=== PATIENT | male | born 1945 | race Two or more races ===

== ENCOUNTER 2023-01-17 14:24 | Inpatient (IN) | payer MEDICARE, OTHER ==
[~2023-01-17] VITALS: Ht 182.9 cm; Wt 86.6 kg
[~2023-01-17 14:24] MED LIST: ALBU0.633 IH; ATOR20TA PO; DOCU-141 PO; FOLI1TAB16 PO; IPRA0.2S49 IH; OLAN5TAB3 PO; SIMV-46 PO; ZOLP5TAB2 PO
--- NOTE | 2023-01-17 14:53 | NUR ---
PT COMES FROM A PRISON A/OX2 NO S/S OF RESPIRATORY DISTRESS. 100% O2 SAT ON ROOM AIR. C/O: COMING FOR INCREASE AGISTATION AND COFUSION PER FACILITY, URINARY RETENTION ALSO NOTED FROM FACILITY. POSSIBLE UTI. PT IS AFEBRIAL 97.8, VITALS WNL. PLACE IN BED HI FOWLERS, BED LOCKED IN LOWEST POSTION.
[2023-01-17 15:36] LABS: BASOPHILS # (AUTO) 0.1 K/uL (0.0-0.2); BASOPHILS % (AUTO) 0.7 % (0.0-2.0); EOSINOPHILS % (AUTO) 2.8 % (0.0-6.0); HEMATOCRIT 32 % (39-51); HEMOGLOBIN 10.2 g/dL (13.5-17.5); LYMPHOCYTES # (AUTO) 1.8 K/uL (0.8-4.8); LYMPHOCYTES % (AUTO) 19.6 % (20.0-44.0); MEAN CORPUSCULAR HGB CONC 32 g/dl (31.0-36.0); MEAN CORPUSCULAR VOLUME 99 fL (80-96); MONOCYTES # (AUTO) 0.7 K/uL (0.1-1.30); MONOCYTES % (AUTO) 8.3 % (2.0-12.0); NEUTROPHILS # (AUTO) 6.1 K/uL (1.8-8.9); NEUTROPHILS % (AUTO) 68.6 % (43.0-81.0); PLATELET COUNT (AUTO) 317 K/uL (150-450); RED BLOOD CELL COUNT(AUTO) 3.21 MIL/uL (4.5-6.0); WHITE BLOOD COUNT (AUTO) 8.9 K/uL (4.3-11.0)
[2023-01-17 16:07] LABS: CALCIUM, SERUM 8.8 mg/dL (8.5-10.1); CARBON DIOXIDE 24 mmol/L (21-32); CHLORIDE 105 mmol/L (98-107); CREATININE 5.8 mg/dL (0.6-1.3); GLUCOSE 142 mg/dL (74-106); POTASSIUM 3.9 mmol/L (3.5-5.1); SODIUM SERUM 140 mmol/L (136-145); UREA NITROGEN, BLOOD 64 mg/dL (7-18)
[2023-01-17 16:14] LABS: ALANINE AMINOTRANSFERASE 26 U/L (12-78); ALBUMIN 3.3 g/dL (3.4-5.0); ALKALINE PHOSPHATASE 218 U/L (46-116); ASPARTATE AMINOTRANSFERASE 15 U/L (15-37); BILIRUBIN,TOTAL 0.2 mg/dL (0.2-1.0); LIPASE 302 U/L (73-393); TOTAL PROTEIN, SERUM 6.7 g/dL (6.4-8.2)
--- NOTE | 2023-01-17 18:58 | NUR ---
covid swab collected and sent to lab
[2023-01-17] MEDS ORDERED: ZOLPIDEM TARTRATE 5 MG TABLET PO PRN ×2 (19:00→22:00)
[2023-01-17] MEDS ORDERED: IV 1/2NS 1000 ML 1,000 ML IV PRN (19:00)
[2023-01-17] MEDS ORDERED: ONDANSETRON HCL/PF 4 MG/2 ML VIAL IVP PRN (19:00)
[2023-01-17] MEDS ORDERED: MAG HYDROX/AL HYDROX/SIMETH 30 ML UDC PO PRN (19:00)
[2023-01-17] MEDS ORDERED: MAGNESIUM HYDROXIDE 30 ML UDC PO PRN (19:00)
[2023-01-17] MEDS ORDERED: Z GUARD REMEDY 4 OZ OINT TP PRN (19:00)
[2023-01-17] MEDS ORDERED: ACETAMINOPHEN 325 MG TABLET PO PRN (19:00)
--- NOTE | 2023-01-17 19:02 | NUR ---
urine sample collected and sent to lab
[2023-01-17 20:15] LABS: BILIRUBIN,URINE NEGATIVE (NEGATIVE); COLOR,URINE YELLOW (YELLOW); LEUKOCYTE ESTERASE ,URINE NEGATIVE (NEGATIVE); NITRITE, URINE POSITIVE (NEGATIVE); PH,URINE 7.5 (5.0-8.0); PROTEIN,URINE 2+ mg/dl (NEGATIVE); UGLUCOSE 1+ mg/dL (NEGATIVE); UROBILINOGEN,URINE 0.2 EU/dL (0.2)
[2023-01-17 20:35] LABS: BACTERIA,URINE 2+ /HPF (None Seen); SQUAMOUS EPITHELIAL CELL,UR 0-2 /HPF (None Seen); WBC,URINE 0-2 /HPF (0-3)
[2023-01-17 21:00] VITALS: BP 113/43
--- NOTE | 2023-01-17 21:00 | NUR ---
MS LIQUID FLOOR AND WALL APPLIER NOTES - RECEIVED PATIENT FROM ED AT 2047 [facility] UNDER THE CARE OF ZANDER NICHOLAS WITH DX OF ACUTE KIDNEY INJURY. PATIENT IS A/O X4 BUT A POOR HISTORIAN. HE SAID HE HAS DAUGHTERS, SONS AND A BROTHER LIVING IN [place]. BREATHING IS EVEN AND NON-LABORED ON ROOM AIR. DENIES CHEST PAIN, ABDOMINAL PAIN, NAUSEA, VOMITING, HEADACHES OR DIZZINESS. PATIENT WAS NOT SURE WHY HE WAS SENT TO THE HOSPITAL. HAS RIGHT ANTECUBITAL IV ACCESS #20G AND SALINE LOCKED. NO S/S OF INFILTRATION NOTED. HAS RIGHT LOWER QUADRANT UROSTOMY WITH BAG INTACT AND FILLED WITH CLEAR YELLOW URINE, MUCUS THREADS NOTED. HAS RIGHT CHEST WALL PORT-A-CATH. HAS LEFT UPPER ARM AV FISTULA, THRILLS AND BRUITS PRESENT. VITAL SIGNS TAKEN AND PHYSICAL ASSESSMENT DONE, NO SKIN ISSUES NOTED. ALL BELONGINGS ACCOUNTED FOR. ORIENTED PATIENT TO UNIT AND STAFF. SAFETY PRECAUTIONS IN PLACE: BED LOCKED AND IN LOW POSITION, SIDE RAILS UP X2, CALL LIGHT WITHIN REACH. WILL CONTINUE PLAN OF CARE.
[2023-01-17] MEDS ORDERED: ATORVASTATIN 10 MG TABLET PO SCH (22:00)
[2023-01-17] MEDS ORDERED: SIMVASTATIN 20 MG TABLET PO SCH (22:00)
[2023-01-17] MEDS ORDERED: IPRATROPIUM NEB FS 0.5 MG/2.5 ML AMPUL.NEB IH PRN (22:00)
[2023-01-17] MEDS: OLANZAPINE 5 MG TABLET PO SCH (22:41)
[2023-01-18 05:54] LABS: BASOPHILS # (AUTO) 0.1 K/uL (0.0-0.2); BASOPHILS % (AUTO) 0.7 % (0.0-2.0); EOSINOPHILS % (AUTO) 3.5 % (0.0-6.0); HEMATOCRIT 32 % (39-51); HEMOGLOBIN 10.2 g/dL (13.5-17.5); LYMPHOCYTES # (AUTO) 1.8 K/uL (0.8-4.8); LYMPHOCYTES % (AUTO) 22.2 % (20.0-44.0); MEAN CORPUSCULAR HGB CONC 32 g/dl (31.0-36.0); MEAN CORPUSCULAR VOLUME 100 fL (80-96); MONOCYTES # (AUTO) 0.6 K/uL (0.1-1.30); MONOCYTES % (AUTO) 7.5 % (2.0-12.0); NEUTROPHILS # (AUTO) 5.5 K/uL (1.8-8.9); NEUTROPHILS % (AUTO) 66.1 % (43.0-81.0); PLATELET COUNT (AUTO) 312 K/uL (150-450); RED BLOOD CELL COUNT(AUTO) 3.18 MIL/uL (4.5-6.0); WHITE BLOOD COUNT (AUTO) 8.3 K/uL (4.3-11.0)
[2023-01-18 06:28] LABS: CALCIUM, SERUM 8.5 mg/dL (8.5-10.1); CARBON DIOXIDE 20 mmol/L (21-32); CHLORIDE 108 mmol/L (98-107); CREATININE 5.3 mg/dL (0.6-1.3); GLUCOSE 87 mg/dL (74-106); MAGNESIUM 2.5 mg/dL (1.8-2.4); PHOSPHORUS 4.2 mg/dL (2.5-4.9); SODIUM SERUM 141 mmol/L (136-145); UREA NITROGEN, BLOOD 63 mg/dL (7-18)
--- NOTE | 2023-01-18 06:57 | NUR ---
MS RN CLOSING NOTES - PATIENT RESTING IN BED, ABLE TO VERBALIZE NEEDS. NO RESPIRATORY OR CARDIAC DISTRESS. NO SOB OR NOTED. NO C/O PAIN OR DISCOMFORT. AFEBRILE. RIGHT ANTECUBITAL IV ACCESS INTACT, PATENT AND FLUSHING. GOOD URINE OUTPUT NOTED. ALL DUE MEDS GIVEN AND NEEDS ATTENDED. AMBULATORY AND INDEPENDENT WITH ADLS. SAFETY PRECAUTIONS MAINTAINED. WILL ENDORSE TO AM RN FOR HARMAN.
--- NOTE | 2023-01-18 07:15 | NUR ---
RN OPENING NOTES RECEIVED PATIENT LAYING IN BED, ABLE TO VERBALIZE NEEDS. NO RESPIRATORY OR CARDIAC DISTRESS. PT ON RA O2 @95%. NO SOB OR DISTRESS AT THIS TIME. NO C/O PAIN OR DISCOMFORT. AFEBRILE. RIGHT AC IV ACCESS INTACT. GOOD URINE OUTPUT NOTED. PT AMBULATED TO RESTROOM AND PASSED STOOL. AMBULATORY AND INDEPENDENT WITH ADLS. SAFETY PRECAUTIONS MAINTAINED. BED IN LOWEST POSITION AND HOB ELEVATED, CALL LIGHT WITHIN REACH. WILL CONTINUE TO MONITOR.
[2023-01-18 08:00] VITALS: BP 113/61
[2023-01-18] MEDS: DOCUSATE SODIUM 100 MG CAPSULE PO SCH ×2 (08:56→20:13)
[2023-01-18] MEDS: FOLIC ACID 1 MG TABLET PO SCH (08:56)
[2023-01-18] MEDS ORDERED: ALBUTEROL HALF STRENGTH 1.25 MG/3 ML VIAL.NEB INH PRN (09:00)
[2023-01-18] MEDS: CEFTRIAXONE 1 G in IV D5W 50 ML IV SCH (11:37)
[2023-01-18] MEDS ORDERED: ZINC50TA69 PO (13:41)
[2023-01-18] MEDS ORDERED: BUPR-54 PO (13:41)
[2023-01-18] MEDS ORDERED: SENN-261 PO (13:41)
[2023-01-18] MEDS ORDERED: MAGN400O6 PO (13:41)
[2023-01-18] MEDS ORDERED: PANT40TA2 PO (13:41)
[2023-01-18] MEDS ORDERED: MIDO5TAB4 PO (13:41)
[2023-01-18] MEDS ORDERED: FOLI0.8T2 PO (13:41)
[2023-01-18] MEDS ORDERED: HYDR-4303 PO (13:41)
[2023-01-18] MEDS ORDERED: MELA5TAB PO (13:41)
[2023-01-18] MEDS ORDERED: CALC667C6 PO (13:41)
[2023-01-18] MEDS ORDERED: ONDA4TAB5 PO (13:41)
[2023-01-18] MEDS ORDERED: LORA-259 PO (13:41)
[2023-01-18] MEDS ORDERED: ASPI-1420 PO (13:41)
--- NOTE | 2023-01-18 15:00 | NUR ---
RN NOTE- PT UROSTOMY BAG ON FLOOR. PT STATED HE REMOVED IT. NEW UROSTOMY APPLIED. TOLERATED WELL
[2023-01-18 15:46] VITALS: BP 98/55
--- NOTE | 2023-01-18 18:57 | NUR ---
RN CLOSING NOTES. PATIENT LAYING IN BED WATCHING TV, ABLE TO VERBALIZE NEEDS. A/OX4. NO RESPIRATORY OR CARDIAC DISTRESS. PT ON RA O2 @96%. NO SOB OR DISTRESS AT THIS TIME. NO C/O PAIN OR DISCOMFORT. AFEBRILE. RIGHT AC IV ACCESS INTACT. GOOD URINE OUTPUT NOTED. URINE OUTPUT AT 1200ML. PT AMBULATED TO RESTROOM AND PASSED STOOL. AMBULATORY AND INDEPENDENT WITH ADLS. SAFETY PRECAUTIONS MAINTAINED. BED IN LOWEST POSITION AND HOB ELEVATED, CALL LIGHT WITHIN REACH. WILL ENDORSE TO SYNTHETIC CHEMIST FOR HARMAN.
--- NOTE | 2023-01-18 19:30 | NUR ---
MS RN OPENING NOTE RECEIVED PATIENT IN BED, AWAKE, ALERT AND ORIENTED X4. ABLE TO MAKE NEEDS KNOWN. AFEBRILE AND NOT IN ANY FORM OF ACUTE DISTRESS. BREATHING EVEN AND NON LABORED. WITH IV ACCESS ON RAC 20G-SL. WITH R ANTERIOR CHEST WALL PERMACATH, DRESSING APPLIED. WITH RLQ UROSTOMY, INTACT AND DRAINING WELL WITH YELLOW URINE OUTPUT, NO HEMATURIA OR SEDIMENTS NOTED. SAFETY MEASURES IN PLACE. KEPT BED IN LOCKED AND IN LOW POSITION. SIDE RAILS UP X2. ADVISED TO USE THE CALL LIGHT WHEN IN NEED OF ASSISTANCE.
[2023-01-18 20:00] VITALS: BP 122/62
[2023-01-18] MEDS: HEPARIN SODIUM, PORCINE 5000 UNITS/1 ML VIAL SQ SCH (20:15)
[2023-01-18] MEDS: OLANZAPINE 5 MG TABLET PO SCH (21:04)
[2023-01-18] MEDS ORDERED: ATORVASTATIN 10 MG TABLET PO SCH (22:00)
--- NOTE | 2023-01-19 03:12 | NUR ---
MS RN NOTE PATIENT PULLED OUT HIS IV LINE. REINSERTED ANOTHER ONE ON R HAND 20G, TOLERATED WELL. ADVISED THE PATIENT NOT TO PULL OUT HIS IV ACCESS SINCE HE STILL NEED IT FOR HIS IV ATB AND PATIENT VERBALIZED UNDERSTANDING.
[2023-01-19 05:57] LABS: BASOPHILS # (AUTO) 0.1 K/uL (0.0-0.2); BASOPHILS % (AUTO) 0.7 % (0.0-2.0); EOSINOPHILS % (AUTO) 3.5 % (0.0-6.0); HEMATOCRIT 35 % (39-51); HEMOGLOBIN 11.1 g/dL (13.5-17.5); LYMPHOCYTES % (AUTO) 26.3 % (20.0-44.0); MEAN CORPUSCULAR HGB CONC 32 g/dl (31.0-36.0); MEAN CORPUSCULAR VOLUME 100 fL (80-96); MONOCYTES # (AUTO) 0.5 K/uL (0.1-1.30); MONOCYTES % (AUTO) 6.7 % (2.0-12.0); NEUTROPHILS # (AUTO) 4.7 K/uL (1.8-8.9); NEUTROPHILS % (AUTO) 62.8 % (43.0-81.0); PLATELET COUNT (AUTO) 340 K/uL (150-450); RED BLOOD CELL COUNT(AUTO) 3.43 MIL/uL (4.5-6.0); WHITE BLOOD COUNT (AUTO) 7.5 K/uL (4.3-11.0)
[2023-01-19 06:20] LABS: CARBON DIOXIDE 19 mmol/L (21-32); CHLORIDE 109 mmol/L (98-107); CREATININE 4.7 mg/dL (0.6-1.3); GLUCOSE 90 mg/dL (74-106); MAGNESIUM 2.6 mg/dL (1.8-2.4); PHOSPHORUS 4.3 mg/dL (2.5-4.9); POTASSIUM 4.4 mmol/L (3.5-5.1); SODIUM SERUM 140 mmol/L (136-145); UREA NITROGEN, BLOOD 63 mg/dL (7-18)
--- NOTE | 2023-01-19 06:20 | NUR ---
MS RN CLOSING NOTE PATIENT IN BED, ASLEEP BUT EASY TO AROUSE AND RESPONSIVE. ABLE TO MAKE NEEDS KNOWN. AFEBRILE AND NOT IN ANY FORM OF ACUTE DISTRESS. BREATHING EVEN AND NON LABORED. WITH IV ACCESS ON R HAND 20G-SL. WITH R ANTERIOR CHEST WALL PERMACATH, DRESSING INTACT. WITH RLQ UROSTOMY, DRESSING CHANGED AND DRAINING WELL WITH YELLOW URINE OUTPUT, NO HEMATURIA OR SEDIMENTS NOTED WITH APPROX. 800ML DURING THE SHIFT. MEDICATED ORDERED. SAFETY MEASURES IN PLACE. KEPT BED IN LOCKED AND IN LOW POSITION. SIDE RAILS UP X2. ADVISED TO USE THE CALL LIGHT WHEN IN NEED OF ASSISTANCE. ALL NURSING NEEDS ATTENDED. ENDORSED TO INCOMING SHIFT FOR CONTINUITY OF CARE.
[2023-01-19 07:00] VITALS: BP_SYST 114; BP_SYST 143; BP_DIAS 63; BP_DIAS 89
--- NOTE | 2023-01-19 07:35 | NUR ---
MS RN OPENING NOTE RECEIVED PATIENT AWAKE IN BED, A/OX4. ABLE TO MAKE NEEDS KNOWN. AFEBRILE AND NOT IN ANY FORM OF ACUTE DISTRESS. BREATHING EVEN AND NON LABORED. WITH IV ACCESS ON RAC 20G-SL. WITH R ANTERIOR CHEST WALL PERMACATH, DRESSING APPLIED. WITH RLQ UROSTOMY, INTACT AND DRAINING WELL WITH YELLOW URINE OUTPUT, NO HEMATURIA OR SEDIMENTS NOTED. SAFETY MEASURES IN PLACE. KEPT BED IN LOCKED AND IN LOW POSITION. SIDE RAILS UP X2. ADVISED TO USE THE CALL LIGHT WHEN IN NEED OF ASSISTANCE. WILL CONTINUE TO MONITOR PATIENT.
[2023-01-19] MEDS: FOLIC ACID 1 MG TABLET PO SCH (08:20)
[2023-01-19] MEDS: DOCUSATE SODIUM 100 MG CAPSULE PO SCH (08:20)
[2023-01-19] MEDS: HEPARIN SODIUM, PORCINE 5000 UNITS/1 ML VIAL SQ SCH (08:22)
[2023-01-19] MEDS: CEFTRIAXONE 1 G in IV D5W 50 ML IV SCH (10:16)
[2023-01-19] MEDS ORDERED: LEVO250T59 PO (10:35)
[2023-01-19] MEDS ORDERED: LEVOFLOXACIN (250MG) 250 MG TABLET PO ONE (11:00)
--- NOTE | 2023-01-19 12:03 | NUR ---
RN NOTES PATIENT START HEMODIALYSIS @ 1200. PATIENT ALREADY SIGNED THE CONSENT FOR HEMODIALYSIS.
--- NOTE | 2023-01-19 13:44 | NUR ---
GRANITE FABRICATOR consult requested for [employer] Directives: Patient is a 77 year old retired male brought to the hospital due to SOB. Patient is alert and oriented x4. Patient was brought to the hospital with SOB. [place] [id number] [place], [place] by himself. Pt is intendant with ADLs and IADLs. Patient requested a copy of [employer] Directive to have his sister Sandra be his POA. GRANITE FABRICATOR provided the form, explained [employer] Directives and referred to a Notary.
--- NOTE | 2023-01-19 14:32 | NUR ---
RN DISCHARGED NOTES PT DISCHARGED TO [facility] ([facility]) IN STABLE CONDITION. A/O X 4. V/S TAKEN, STABLE AND RECORDED. NO SKIN ISSUES NOTED. PT BELONGINGS SIGNED AND FILED. RIGHT HAND 20G SL, REMOVED. NO SIGNS OF BLEEDING ON THE SITE NOTED. RIGHT ANTERIOR CHEST WALL PERMACATH NOT REMOVED WITH NO SIGNS OF BLEEDING. RLQ UROSTOMY NOT REMOVED. INTACT AND DRAINING WELL. NO HEMATURIA OR SEDIMENTS NOTED. ARM BAND REMOVED. PT LEFT UNIT @ 1430 [facility]IA [facility] ACCOMPANIED BY 2 EMT'S. MD AND CHARGE NURSE AWARE OF DISCHARGE.
[2023-01-22 13:06] LABS: HEPATITIS Be AB Negative (Negative)
== END 2023-01-19 14:30 | DRG 689 ==
LOC: ER 14:26 → MED 19:53
PROVIDERS: ADMIT Student in an Organized Health Care Education/Training Program; ATTEND Nurse Practitioner Family
PROC: 5A1D70Z Performance of Urinary Filtration, Intermittent, Less than 6 Hours Per Day (ICD-10-PCS; principal; 2023-01-19)
DX: N39.0 Urinary tract infection, site not specified (principal); N18.6 End stage renal disease; G93.49 Other encephalopathy; I12.0 Hypertensive chronic kidney disease with stage 5 chronic kidney disease or end stage renal disease; Z90.5 Acquired absence of kidney; I72.3 Aneurysm of iliac artery; E78.5 Hyperlipidemia, unspecified; E11.22 Type 2 diabetes mellitus with diabetic chronic kidney disease; Z99.2 Dependence on renal dialysis; Z20.822 Contact with and (suspected) exposure to COVID-19; Z79.51 Long term (current) use of inhaled steroids; Z79.899 Other long term (current) drug therapy; Z85.528 Personal history of other malignant neoplasm of kidney; B96.89 Other specified bacterial agents as the cause of diseases classified elsewhere
CPT/HCPCS: 36415; 76770-TC; 80048-TC; 80076-TC; 81001; 83690-TC; 83735-TC; 84100-TC; 85025-TC; 86706; 86707; 86803; 87081-TC; 87086-TC; 87340; A4223; C9803; G0378; J0696; J1644; J3490; J7060